=== PATIENT | female | born 1960 | race Caucasian/White ===

== ENCOUNTER → 2021-06-01 | Outpatient (CLI) | payer OTHER ==
--- NOTE | 2021-06-02 08:13 | MR ---
EXAMINATION TYPE: MR cervical spine wo con DATE OF EXAM: 06/01/2021 COMPARISON: None HISTORY: cervical pain that travels to patient's Rt shoulder and RT arm x10 years CONTRAST: Performed utilizing 0 mL intravenous Gadavist gadolinium contrast. TECHNIQUE: Multiplanar multiecho imaging on a 3.0 Hyun magnet is performed through the cervical spin e. FINDINGS: The craniovertebral junction is normal. Vertebral body alignment is normal. Disc desicca tion is present. Hemangiomas within the left aspect of T2. Spinal cord maintains normal signal throug hout visualized course. C7-T1: No focal disc herniation or significant disc bulge is evident. No spinal canal stenosis or n eural foraminal stenosis is present. C6-7: No focal disc herniation or significant disc bulge is evident. No spinal canal stenosis or daly ral foraminal stenosis is present. C5-6: No focal disc herniation or significant disc bulge is evident. No spinal canal stenosis or daly ral foraminal stenosis is present. C4-5: No focal disc herniation or significant disc bulge is evident. No spinal canal stenosis or daly ral foraminal stenosis is present. C3-4: No focal disc herniation or significant disc bulge is evident. No spinal canal stenosis or daly ral foraminal stenosis is present. C2-3: No focal disc herniation or significant disc bulge is evident. No spinal canal stenosis or daly ral foraminal stenosis is present. IMPRESSIONS: 1. No suspicious disc herniation or disc bulge spinal canal stenosis or neural foraminal stenosis pre sent to account for patient's symptoms.
== END | disposition home or self-care (01) ==
LOC: RADMRIMAIN 13:01
PROVIDERS: ATTEND Physician Assistant
DX: M54.2 Cervicalgia (principal)
CPT/HCPCS: 72141

== ENCOUNTER → 2022-05-23 | Outpatient (CLI) | payer OTHER ==
--- NOTE | 2022-05-24 05:07 | MR ---
EXAMINATION TYPE: MR ankle RT wo con DATE OF EXAM: 05/23/2022 COMPARISON: None HISTORY: Twisted ankle running down stairs. Foot pain Multiplanar multi echo imaging of the right ankle performed without contrast. There is moderate plantar calcaneal spurring. The Achilles tendon is intact. Plantar fascia is intact . The medial and lateral flexor tendons are intact. Ankle mortise is anatomic. No fracture seen. Ther e is some mild edema in the anterior talus at the talonavicular joint. No fracture line seen. The col lateral ligaments are intact. There is 1 x 2 cm area of mild edema in the posterior malleolus. IMPRESSION: No fracture. There is some edema in the posterior malleolus of the ankle and consistent with a bone b ruise. There is also some bone bruising in the anterior talus adjacent to the talonavicular joint. No evidence of ligament or tendon tear. Calcaneal spurring.
--- NOTE | 2022-05-24 05:31 | MR ---
EXAMINATION TYPE: MR foot RT wo con DATE OF EXAM: 05/23/2022 COMPARISON: None HISTORY: Twisted ankle running down stairs. Foot pain Multiplanar multiecho imaging of the right foot performed without contrast. The metatarsals are intact. There is abnormal increased signal on the T2 images in the head of the pr oximal phalanx of the second toe and third toe. There is also slight increased signal in the middle p halanx of the fourth toe. There is mild increased fluid signal in the head of the proximal phalanx of the little toe. There is minimal edema in the anterior talus at the talonavicular joint and consiste nt with small bone bruise measuring 1 cm. There is increased signal in the lateral aspect of the seco nd cuneiform bone and consistent with a bone bruise or nondisplaced fracture. No evidence of tarsal b one fracture. No evidence of a soft tissue mass. No pathologic fluid collection. IMPRESSION: There is some mild edema in multiple toes as above. This could relate to nondisplaced fractures or florence ne bruises. There is some edema in the anterior talus and the second cuneiform bone consistent with b one bruise. Correlation with plain x-rays recommended.
== END | disposition home or self-care (01) ==
LOC: RADMRIMAIN 14:51
PROVIDERS: ATTEND Physician Assistant
DX: S93.401A Sprain of unspecified ligament of right ankle, initial encounter (principal); M77.31 Calcaneal spur, right foot; R60.0 Localized edema